=== PATIENT | female | born 1980 | race Caucasian/White ===

== ENCOUNTER 2019-05-07 01:11 | Emergency (ER) | payer BC ==
[~2019-05-07] VITALS: Ht 160 cm; Wt 54.0 kg
[2019-05-07 01:21] VITALS: BP 119/83
[2019-05-07] MEDS ORDERED: methylPREDNISolone SS 125 MG/2 ML VIAL IVP ONE (01:40)
[2019-05-07 03:11] VITALS: BP 119/83
== END 2019-05-07 03:11 | disposition left against medical advice (07) ==
LOC: MED 01:11
DX: R21 Rash and other nonspecific skin eruption (principal); R30.9 Painful micturition, unspecified; R35.0 Frequency of micturition; Z53.21 Procedure and treatment not carried out due to patient leaving prior to being seen by health care provider
CPT/HCPCS: 96374; 99283; J2930